=== PATIENT | male | born 2000 | race Caucasian/White ===

== ENCOUNTER 2021-04-01 16:05 | Emergency (ER) | payer SELFPAY ==
[~2021-04-01] VITALS: Ht 182.9 cm; Wt 68.0 kg
[2021-04-01 16:08] VITALS: BP 142/83
== END 2021-04-01 18:07 | disposition left against medical advice (07) ==
LOC: ER 16:05
DX: H92.01 Otalgia, right ear (principal); Z53.21 Procedure and treatment not carried out due to patient leaving prior to being seen by health care provider

== ENCOUNTER 2021-04-03 19:39 | Emergency (ER) | payer SELFPAY ==
[~2021-04-03] VITALS: Ht 182.9 cm; Wt 72.6 kg
[2021-04-03 19:39] VITALS: BP 147/84
[2021-04-04 00:11] LABS: Basophils # (auto) 0 10 ^3/uL (0-0.2); Basophils % (auto) 0.5 % (0.0-2.0); Eosinophils # (auto) 0.2 10 ^3/uL (0-0.8); Eosinophils % (auto) 1.7 % (0.0-7.0); Hemoglobin 15.2 g/dL (13.5-17.5); Lymphocytes # (auto) 2.6 10 ^3/uL (0.4-5.4); Lymphocytes % (auto) 28.4 % (10.0-50.0); Monocytes # (auto) 0.8 10 ^3/uL (0-1.3); Monocytes % (auto) 8.4 % (0.0-12.0); Neutrophils # (auto) 5.6 10 ^3/uL (1.6-8.6); Red Cell Distribution Width 13.7 % (11.8-14.3); White Blood Cell 9.2 10^3/uL (4.4-10.8)
[2021-04-04 00:16] LABS: Potassium 4.5 mmol/L (3.5-5.1)
[2021-04-04 01:10] LABS: Albumin 4.4 g/dL (3.4-5.0); BUN/Creatinine Ratio 13.8; Bilirubin, Total 0.4 mg/dL (0.2-1.0); Calcium 9.4 mg/dL (8.5-10.1)
== END 2021-04-04 00:50 | disposition left against medical advice (07) ==
LOC: ER 19:42
DX: R07.89 Other chest pain (principal); R06.02 Shortness of breath; R42 Dizziness and giddiness; Z53.21 Procedure and treatment not carried out due to patient leaving prior to being seen by health care provider
CPT/HCPCS: 36415; 71045; 80053; 84484; 85025; 93005